=== PATIENT | female | born 1995 | race Hispanic/Latino ===

== ENCOUNTER 2019-05-17 20:43 | Emergency (ER) | payer OTHER ==
[~2019-05-17] VITALS: Ht 170.2 cm; Wt 68.2 kg
[2019-05-17] MEDS ORDERED: NEXP1IMP SC (20:48)
[2019-05-17] MEDS ORDERED: DOXY1CAP60 PO (20:48)
--- NOTE | 2019-05-17 23:44 | REPVR ---
PROCEDURE INFORMATION: Exam: CT Right Lower Extremity Without Contrast, Ankle Exam date and time: 05/17/2019 9:56 PM Age: 24 years old Clinical indication: Injury or trauma; Fall; Initial encounter; Blunt trauma; Ankle; Right; Additional info: ? Posterior malleolus FX on x-ray TECHNIQUE: Imaging protocol: CT of the Right lower extremity without contrast was performed. Exam focused on the ankle. Radiation optimization: All CT scans at this facility use at least one of these dose optimization techniques: automated exposure control; mA and/or kV adjustment per patient size (includes targeted exams where dose is matched to clinical indication); or iterative reconstruction. COMPARISON: CR Ankle, complete RIGHT 05/17/2019 8:58 PM (The report from this study was not available for review at the time of this interpretation.) FINDINGS: Bones/joints: There is an acute nondisplaced longitudinal fracture of the right posterior malleolus, which causes a slight cortical step-off in the posterior portion of the tibial plafond. The talar dome is intact. No other fractures are noted in the right ankle. The joint spaces are preserved. No arthropathy is noted. There is no tarsal coalition. Incidental note is made of a well corticated accessory ossicle lateral to the cuboid, which represents an os peroneum. Soft tissues: There is soft tissue swelling and bruising adjacent to the right lateral malleolus. IMPRESSION: 1. Acute nondisplaced longitudinal fracture of the right posterior malleolus, which causes a slight cortical step-off in the posterior portion of the tibial plafond. 2. Soft tissue swelling and bruising adjacent to the right lateral malleolus. Electronically signed by: Shalom Cruz On 05/17/2019 23:45:48 PM
[2019-05-18] MEDS ORDERED: IBUP-1022 PO (00:36)
[2019-05-18] MEDS ORDERED: IBUPROFEN 600 MG TAB As Ordered ONE (00:57)
[2019-05-18] MEDS ORDERED: IBUPROFEN 600 MG TAB PO ONE (01:00)
[2019-05-18 01:01] VITALS: BP 97/47
--- NOTE | 2019-05-18 08:05 | REP ---
Right ankle four views: There are no comparisons. There is soft tissue edema laterally. On the lateral view there is a nondisplaced posterior malleolar fracture. There is no subluxation or dislocation. Mineralization is normal. There are no calcifications or foreign bodies. Impression: Nondisplaced posterior malleolar fracture. Electronically Signed by Lauri Lerner MD 05/18/2019 07:56 A
== END 2019-05-18 01:11 | disposition home or self-care (01) ==
LOC: M ED 20:43
DX: S82.024A Nondisplaced longitudinal fracture of right patella, initial encounter for closed fracture (principal); W00.0XXA Fall on same level due to ice and snow, initial encounter; Y92.410 Unspecified street and highway as the place of occurrence of the external cause; Y93.01 Activity, walking, marching and hiking; Y99.9 Unspecified external cause status; Z79.3 Long term (current) use of hormonal contraceptives; Z79.899 Other long term (current) drug therapy